=== PATIENT | male | born 1940 | race Caucasian/White ===

== ENCOUNTER → 2018-10-09 | Outpatient (CLI) | payer OTHER, MEDICARE ==
[~2018-10-09] VITALS: Ht 170.2 cm; Wt 86.2 kg
[~2018-10-09] MED LIST: ASPIR 8181 MG PO; BENICAR40 MG PO; CENTRUM SILVER1 EAC2 PO; COREG25 MG PO; DORZOLAMIDE HCL10 ML OPHTHALMIC; FLOMAX0.4 MG PO; HYDRALAZINE 5050 MG PO; MAGOX 400400 MG PO; MYLANTA PO; NITROGLYCERIN0.4 MG SUBLING; PLAVIX 75 MG TA75 M1 PO; TIMOLOL MALEATE5 M1 OPHTHALMIC; VITAMIN B-12500 MCG PO; XALATAN2.5 ML OPHTHALMIC; XANAX 0.25 MG0.25 MG PO
--- NOTE | 2018-10-12 15:07 | PATH ---
[facility] [place] [address] PATHOLOGY RPT PROCEDURE Name: OLEG VALENCIA Room #: REG CELYlA Oliveros.#: [id number] Admission: 10/09/18 Date of : 38 Discharge: Report #: [id number] Path Case #: [id number] [facility] Accession Number: [id number] . 01 Material submitted: . PART A: DUODENAL BX R/O CELIAC SPRUE PART B: ANTRAL BX R/O H-PYLORI PART C: BX DISTAL ESOPHAGUS R/O BARRETTS PART D: BX POLYP AT SIGMOID COLON . 01 Clinical history: . Pre-OP DX: HX: polyps Post-OP DX: Hiatal hernia, gastritis, diverticulosis, colon polyp, anterior hemorrhoids . 02 Diagnosis: A. Small bowel mucosa, duodenum rule out celiac sprue, endoscopic biopsy: - No diagnostic abnormalities present. - Negative for villous blunting or increase in intraepithelial lymphocytes. . B. Gastric mucosa, antrum rule out H. pylori, endoscopic biopsy: - Moderate reactive gastropathy. - Negative for intestinal metaplasia or atrophy. - Negative for Helicobacter pylori (properly controlled immunohistochemical stain performed). . C. Gastroesophageal mucosa, distal esophagus rule out Kim's, endoscopic biopsy: - Gastric fundic-type mucosa with moderate chronic inflammation and reactive changes. - Negative for Kim's metaplasia or dysplasia. - Squamous mucosa with mild esophagitis and changes compatible with reflux. . D. Polyp, at sigmoid colon, endoscopic biopsy: - Compatible with a tubular adenoma. - Negative for high grade dysplasia. (IUV/db; 10/10/2018) LBQ/10/10/2018 . 02 Electronically signed: . Moon Sterling MD, Pathologist NPI- [id number] . 01 Gross description: . A. Received in formalin labeled "Oleg Valencia duodenal BX, rule out [address] [address] PATHOLOGY RPT PROCEDURE Name: OLEG VALENCIA Room #: REG CLI Connor#: [id number] Admission: 10/09/18 Date of : 38 Discharge: Report #: [id number] Path Case #: [id number] celiac sprue," are 2 segments of garcia soft tissue measuring 0.7 x 0.3 x 0.2 cm in aggregate dimensions and ranging from 0.3 to 0.4 cm in maximum dimension. The specimen is submitted entirely in cassette A1. . B. Received in formalin labeled "Lala Oleg, antral BX, rule out H. pylori," are 2 segments of garcia soft tissue measuring 0.9 x 0.2 x 0.1 cm in aggregate dimensions and ranging from 0.3 to 0.4 cm in maximum dimension. The specimen is submitted entirely in cassette B1. . C. Received in formalin labeled "Laluelena, Oleg, BX distal esophagus, rule out Kim's," are 2 segments of garcia soft tissue measuring 0.7 x 0.2 x 0.2 cm in aggregate dimensions and ranging from 0.3 to 0.4 cm in maximum dimension. The specimen is submitted entirely in cassette C1. . D. Received in formalin labeled "Lala Oleg, BX polyp sigmoid colon," are 2 segments of garcia soft tissue measuring 0.6 x 0.3 x 0.2 cm in aggregate dimensions and ranging from 0.2 to 0.4 cm in maximum dimension. The specimen is submitted entirely in cassette D1. (TSD; 10/09/2018) TOB/TOB . 02 Pathologist provided ICD-10: K31.9, K29.50, K21.0, D12.5 . 02 CPT . 006471, 413738, 616184, 576128 Specimen Comment: A courtesy copy of this report has been sent to Specimen Comment: [phone], , . Specimen Comment: Report sent to , and Specimen Comment: A duplicate report has been generated due to demographic updates. Performed at: [address], [place] [id number] MD Jonathan Lui MD Phone: [phone] Performed at: [address], [place], [place] [id number] MD Moon Sterling MD Phone: [phone]
== END | disposition home or self-care (01) ==
LOC: GI 10:20
DX: D12.5 Benign neoplasm of sigmoid colon (principal); K57.30 Diverticulosis of large intestine without perforation or abscess without bleeding; K64.8 Other hemorrhoids; K29.50 Unspecified chronic gastritis without bleeding; K21.0 Gastro-esophageal reflux disease with esophagitis; K44.9 Diaphragmatic hernia without obstruction or gangrene; I10 Essential (primary) hypertension; I25.10 Atherosclerotic heart disease of native coronary artery without angina pectoris; K21.9 Gastro-esophageal reflux disease without esophagitis; Z95.1 Presence of aortocoronary bypass graft; Z86.010 Personal history of colon polyps; Z90.49 Acquired absence of other specified parts of digestive tract; Z98.41 Cataract extraction status, right eye; Z98.42 Cataract extraction status, left eye; Z95.5 Presence of coronary angioplasty implant and graft; Z88.2 Allergy status to sulfonamides; Z88.8 Allergy status to other drugs, medicaments and biological substances; Z79.899 Other long term (current) drug therapy; Z87.891 Personal history of nicotine dependence; Z98.890 Other specified postprocedural states
CPT/HCPCS: 62110; 62900